=== PATIENT | female | born 1995 | race Caucasian/White ===

== ENCOUNTER 2024-10-23 19:13 | Emergency (ER) | payer MEDICAID, OTHER ==
[~2024-10-23] VITALS: Ht 162.6 cm; Wt 112.0 kg
--- NOTE | 2024-10-23 19:45 | ED.PDOC ---
PLANNING FEEDER HPI Comments 29 y/o F presents with c/c menstrual cramping and pressure-like, lower abdominal pain and nausea. Patient endorses on being 7x weeks , currently (LMP on 09/01/2024; expected due date on 06/08/2025). She reports 3x week history of symptoms, which have became constant within the past week after being on-and-off prior. Patient stats on receiving an ultrasound 1x week ago at [facility], which showed no yolksac then, and was given instruction to followup in 1x week. No significant past medical or surgical history. No endorsement of any recent injuries, sick contact, sexual activity, or travel. Denies of any vomiting, diarrhea, constipation, urinary symptoms, fever, chills, or further associated symptoms. Chief Complaint: Pelvic Pain Time Seen by MD: 19:30 Reviewed Notes: Nurses Notes, Medications, Allergies Information Source: Patient Mode of Arrival: Ambulatory Timing: Weeks Prehospital treatment: Other (See HPI) Severity: Moderate Past Medical History PAST MEDICAL HISTORY: Denies Surgical History: Denies all surgeries RCP History: Denies all RCP Hx LMP 09/01/2024 Family History Family History: Unknown Social History Smoker: Non-Smoker Alcohol: Denies ETOH Use Drugs: Denies Drug Use Lives In: Home All Other Systems: Reviewed and Negative (Comprehensive systems review obtained and negative except for what is stated in the HPI.) Physical Exam General Appearance: Mild Distress, Normal HEENT: Normal ENT Inspection, Pharynx Normal, TMs Normal Neck: Full Range of Motion, Non-Tender, Normal, Normal Inspection Respiratory: Chest Non-Tender, Lungs Clear, No Accessory Muscle Use, No Respiratory Distress, Normal Breath Sounds Cardiovascular: No Edema, No JVD, No Murmur, No Gallop, Normal Peripheral Pulses, Regular Rate/Rhythm Breast Exam: Deferred Gastrointestinal: No Organomegaly, Non Tender, No Pulsatile Mass, Normal Bowel Sounds, Soft Genitalia: Deferred Pelvic: Deferred Rectal: Deferred Extremities: No calf tenderness, Normal capillary refill, Normal inspection, Normal range of motion, Non-tender, No pedal edema Musculoskeletal : Apperance: Normal Neurologic: Alert, 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 Was a procedure done?: No Differential Diagnosis (RCP) Vaginal Bleeding: - Complete, - Incomplete, - Inevitable, - Missed, - Threatened, Ectopic , Hormonal, PID, UTI X-Ray, Labs, Meds, VS Vital Signs Date Time Temp Pulse Resp B/P (MAP) Pulse Ox O2 Delivery O2 Flow Rate FiO2 10/23/24 19:17 99.0 120 16 126/84 98 99.0 Lab Test 10/23/24 21:07 10/23/24 19:36 Range/Units Urine Color Yellow Yellow Urine Clarity Turbid H Clear Urine pH 5.5 5.0-9.0 Urine Specific [place] 1.021 1.001-1.035 Urine Protein Negative Negative Urine Ketones Trace Negative Urine Blood Negative Negative /uL Urine Nitrite Negative Negative Urine Bilirubin Negative Negative Urine Urobilinogen Normal Negative mg/dL Urine Leukocyte Esterase Negative Negative /uL Urine RBC 2 0 - 4 /hpf Urine Microscopic WBC 2 0-5 /HPF Urine Squamous Epithelial Cells Few <5 /hpf Urine Bacteria None seen None Seen /hpf Urine Mucus Few None Seen Urine Glucose Normal Normal mg/dL White Blood Count 12.6 H 4.4-10.8 10^3/uL Red Blood Count 4.94 4.0-5.20 10^6/uL Hemoglobin 13.9 12.2-16.2 g/dL Hematocrit 41.6 36.0-46.0 % Mean Corpuscular Volume 84.1 80.0-100.0 fL Mean Corpuscular Hemoglobin 28.2 28.0-32.0 pg Mean Corpuscular Hemoglobin Concent 33.6 32.0-36.0 g/dL Red Cell Distribution Width 14.3 11.8-14.3 % Platelet Count 425 140-450 10^3/uL Mean Platelet Volume 7.1 6.9-10.8 fL Neutrophils (%) (Auto) 73.4 37.0-80.0 % Lymphocytes (%) (Auto) 20.7 10.0-50.0 % Monocytes (%) (Auto) 4.7 0.0-12.0 % Eosinophils (%) (Auto) 0.6 0.0-7.0 % Basophils (%) (Auto) 0.6 0.0-2.0 % Neutrophils # (Auto) 9.3 H 1.6-8.6 10 ^3/uL Lymphocytes # (Auto) 2.6 0.4-5.4 10 ^3/uL Monocytes # (Auto) 0.6 0-1.3 10 ^3/uL Eosinophils # (Auto) 0.1 0-0.8 10 ^3/uL Basophils # (Auto) 0.1 0-0.2 10 ^3/uL Nucleated Red Blood Cells 0.1 % Sodium Level 141 136-145 mmol/L Potassium Level 4.1 3.5-5.1 mmol/L Chloride Level 107 98-107 mmol/L Carbon Dioxide Level 21 20-31 mmol/L Anion Gap 13 5-15 Blood Urea Nitrogen 6 L 9-23 mg/dL Creatinine 0.72 0.550-1.02 mg/dL Glomerular Filtration Rate Calc 115 >90 mL/min BUN/Creatinine Ratio 8.3 L 10.0-20.0 Serum Glucose 133 H 74-106 mg/dL Calcium Level 9.7 8.7-10.4 mg/dL Beta HCG, Quantitative 24713.6 H 1.5-4.2 mIU/mL [place] [id number] Ph: [phone] DIAGNOSTIC IMAGING Diagnostic Imaging Report : [id number] Signed PATIENT: EFREN JEAN-BAPTISTE ACCT: [id number] UNIT: [id number] : 1995 LOC: ER ROOM / BED: / AGE / SEX: 29 / F ADM STATUS: REG ER SERVICE 25 ORDERING PHYSICIAN: SARAH MOSS MD PROCEDURE(s): OB4US - OB ULTRASOUND COMP LESS 14WKS REASON: CRAMPING, 7 wks ORDER NUMBER(s): [id number], ACCESSION NUMBER(s): [id number] INDICATION: CRAMPING, 7 wks TECHNIQUE: Multiple real-time grayscale transabdominal sonographic images along with color and duplex Doppler of the uterus and ovaries were obtained. COMPARISON: None FINDINGS: The uterus measures 10.78 x 5.55 x 5.33 cm. The endometrial stripe measures IUP cm. The right ovary measures 1.95 x 1.4 x 1.8 cm. Volume of the right ovary is 2.58 cc The left ovary measures 2 x 2.04 x 2.37 cm. Volume of the left ovary is 5.08 cc Subsequent color and duplex Doppler interrogation of the ovaries demonstrated symmetric vascular flow to both ovaries, though this does not exclude the possibility of torsion due to the dual blood supply. Gestational sac: 2.41 cm consistent with 7 weeks 0 days yolk sac visualized [facility]-rump length 0.89 cm consistent with 6 weeks 6 days TIA 06/11/2025 ; average gestational age 7 weeks 0 days ; FHR: 151 beats per minute IMPRESSION: 1. 7 week 0 day single living intrauterine . 2. TIA 06/11/2025 3. FHR: 151 beats per minute ATED BY: CRISTIAN SAXENA Jr., DO DICTATED DATE/TIME: 10/23/242209 SIGNED BY: CRISTIAN SAXENA Jr., SIGNED DATE/TIME: 10/23/242209 CC: Time of 1ST Reevaluation: 20:00 Reevaluation 1ST: Unchanged Patient Education/Counseling: Diagnosis, Treatment, Need For Follow Up Family Education/Counseling: No Family Present Departure 1 Departure Time of Disposition: 22:32 Impression: Primary Impression: 7 weeks gestation of Additional Impression: Abdominal pain affecting Disposition: 01 HOME / SELF CARE / HOMELESS Condition: Stable Discharged With: Self Critical Care Note Critical Care Time?: No Stability Stability form required: No Heart Score Heart Score: Heart Score Response (Comments) Value History N/A 0 EKG N/A 0 Age N/A 0 Risk Factors N/A 0 Troponin N/A 0 Total 0 I personally scribed for SARAH MOSS MD ([email or web address]) on 10/23/24 at 19:45. Electronically submitted by Luciano Knutson ([email or web address]). I personally scribed for SARAH MOSS MD ([email or web address]) on 10/23/24 at 19:46. Electronically submitted by Luciano Knutson ([email or web address]). I personally scribed for SARAH MOSS MD ([email or web address]) on 10/23/24 at 22:21. Electronically submitted by Luciano Knutson ([email or web address]). SARAH MOSS MD Oct 23, 2024 19:45
[2024-10-23 19:46] LABS: Hematocrit 41.6 % (36.0-46.0); Hemoglobin 13.9 g/dL (12.2-16.2); Mean Corpuscular Hemoglobin 28.2 pg (28.0-32.0); Mean Corpuscular Volume 84.1 fL (80.0-100.0); Nucleated Red Blood Cells % 0.1 %
[2024-10-23 20:12] LABS: Chloride 107 mmol/L (98-107); Potassium 4.1 mmol/L (3.5-5.1); Sodium 141 mmol/L (136-145)
[2024-10-23 20:13] LABS: Anion Gap 13 (5-15); Carbon Dioxide 21 mmol/L (20-31)
[2024-10-23 20:14] LABS: Calcium 9.7 mg/dL (8.7-10.4)
[2024-10-23 20:18] LABS: BUN/Creatinine Ratio 8.3 (10.0-20.0)
[2024-10-23 20:21] LABS: Blood Urea Nitrogen 6 mg/dL (9-23); Glucose 133 mg/dL (74-106)
[2024-10-23 21:36] LABS: Urine Protein, UAD Negative (Negative)
--- NOTE | 2024-10-23 22:12 | DVH ---
INDICATION: CRAMPING, 7 wks TECHNIQUE: Multiple real-time grayscale transabdominal sonographic images along with color and duplex Doppler of the uterus and ovaries were obtained. COMPARISON: None FINDINGS: The uterus measures 10.78 x 5.55 x 5.33 cm. The endometrial stripe measures IUP cm. The right ovary measures 1.95 x 1.4 x 1.8 cm. Volume of the right ovary is 2.58 cc The left ovary measures 2 x 2.04 x 2.37 cm. Volume of the left ovary is 5.08 cc Subsequent color and duplex Doppler interrogation of the ovaries demonstrated symmetric vascular flow to both ovaries, though this does not exclude the possibility of torsion due to the dual blood suppl y. Gestational sac: 2.41 cm consistent with 7 weeks 0 days yolk sac visualized [facility]-rump length 0.89 cm consistent with 6 weeks 6 days TIA 06/11/2025 ; average gestational age 7 weeks 0 days ; FHR: 151 beats per minute IMPRESSION: 1. 7 week 0 day single living intrauterine . 2. TIA 06/11/2025 3. FHR: 151 beats per minute
[2024-10-23 23:35] VITALS: BP 134/78; PULSE 89; RESP 20; TEMP 98.6; O2SAT 99
== END 2024-10-23 23:46 | disposition home or self-care (01) ==
LOC: ER 19:13
DX: O26.891 Other specified pregnancy related conditions, first trimester (principal); R10.30 Lower abdominal pain, unspecified; R10.2 Pelvic and perineal pain; Z3A.01 Less than 8 weeks gestation of pregnancy
CPT/HCPCS: 36415; 76801; 80048; 81001; 84702; 85025; 86901